=== PATIENT | female | born 1965 | race African-American/Black ===

== ENCOUNTER 2017-11-25 03:17 | Emergency (ER) | payer SELFPAY ==
[2017-11-25] MEDS ORDERED: Ibuprofen 100 MG/5 ML UDCUP ONE (03:57)
--- NOTE | 2017-11-25 09:11 | RAD ---
CHEST PA AND LATERAL: Date: 11/25/17 HISTORY: 52-year-old female with cough for 2 weeks. FINDINGS: There is some left-sided pleural effusion/pleural thickening. Slight right costophrenic angle bluntin g. Minimal patchy bibasilar parenchymal changes without significant confluent process. Heart size is within normal limits. IMPRESSION: Some left-sided pleural effusion/pleural thickening with slight right costophrenic angle blunting. Pa tchy minimal infrahilar parenchymal changes bilaterally, nonspecific, possibly mild pneumonitis or bullard bsegmental atelectasis. POS: [facility]
== END 2017-11-25 04:26 | disposition home or self-care (01) ==
LOC: ERS 03:17
DX: J18.9 Pneumonia, unspecified organism (principal); I10 Essential (primary) hypertension; F20.9 Schizophrenia, unspecified; F17.210 Nicotine dependence, cigarettes, uncomplicated; Z79.899 Other long term (current) drug therapy
CPT/HCPCS: 71046; 93005; 96372; 99406

== ENCOUNTER 2018-12-12 11:04 | Emergency (ER) | payer SELFPAY ==
--- NOTE | 2018-12-12 13:13 | RAD ---
EXAM: CHEST ONE VIEW PORTABLE: History: Cough. Comparison: 11-25-17 FINDINGS: Slight blunting of the costophrenic angles suggesting possible small pleural effusions. Minimal patch y and parenchymal changes in the right and left infrahilar regions raising concern for minimal pneumo nitis. These markings appear little changed, possibly very slightly more prominent than on the prior study. IMPRESSION: Patchy infrahilar minimal linear and parenchymal changes, possibly mild pneumonitis or subsegmental a telectasis or chronic change. Stable to slightly improved costophrenic angle blunting bilaterally. No new confluent pneumonia. Stable heart size. POS: [facility]
== END 2018-12-12 13:27 | disposition home or self-care (01) ==
LOC: ERS 11:04
DX: R05 Cough (principal); I10 Essential (primary) hypertension; F20.9 Schizophrenia, unspecified; F17.210 Nicotine dependence, cigarettes, uncomplicated; Z79.899 Other long term (current) drug therapy; Z71.6 Tobacco abuse counseling
CPT/HCPCS: 71045; 87804; 99406

== ENCOUNTER 2020-01-18 08:17 | Emergency (ER) | payer SELFPAY ==
--- NOTE | 2020-01-18 08:48 | RAD ---
RADIOGRAPH CHEST 2 VIEW: DATE: 01/18/2020 TIME: 9:37 AM HISTORY: 54-year-old female with cough and chest congestion COMPARISON: 11/25/2017 12/12/2018 FINDINGS: Mild blunting of left lateral and left posterior costophrenic angles appears similar to 11/25/2017 and may represent pleural thickening or recurrent tiny left pleural effusion. There is no right pleural effusion. The patchy airspace densities on 12/12/2018 are no longer visualized. Prominent lung markings at bilateral infrahilar lung zones appear unchanged compared to 11/25/2017, and may be chronic. No definite large consolidation, cardiomegaly, or pneumothorax. IMPRESSION: 1. No definite large consolidation. 2. Left pleural reaction. 3. Findings appear similar to 11/25/2017.
== END 2020-01-18 09:05 | disposition home or self-care (01) ==
LOC: ERS 08:17
DX: J20.9 Acute bronchitis, unspecified (principal); I10 Essential (primary) hypertension; F20.9 Schizophrenia, unspecified; F17.210 Nicotine dependence, cigarettes, uncomplicated; Z79.899 Other long term (current) drug therapy
CPT/HCPCS: 71046

== ENCOUNTER 2020-01-21 06:40 | Emergency (ER) | payer SELFPAY | END 2020-01-21 07:25 | disposition home or self-care (01) | LOC: ERS 06:40 | DX: J18.9 Pneumonia, unspecified organism (principal); J44.1 Chronic obstructive pulmonary disease with (acute) exacerbation; J40 Bronchitis, not specified as acute or chronic; I10 Essential (primary) hypertension; F20.9 Schizophrenia, unspecified; F17.210 Nicotine dependence, cigarettes, uncomplicated; Z79.899 Other long term (current) drug therapy | CPT/HCPCS: 99284 ==

== ENCOUNTER 2020-01-29 15:51 | Emergency (ER) | payer SELFPAY ==
--- NOTE | 2020-01-29 16:44 | RAD ---
PA AND LATERAL VIEWS CHEST: 01/29/20 HISTORY: Cough. COMPARISON: 01/18/20. FINDINGS/IMPRESSION: The heart size is enlarged but stable. There is blunting of the left lateral costophrenic angle is ag ain seen and likely represents a small pleural effusion. No lobar consolidation, pneumothoraces, or f rank pulmonary edema are seen. The heart size is stable. POS: [facility]
[2020-01-29] MEDS ORDERED: Ketorolac Tromethamine 30 MG/ML VIAL ONE (17:21)
[2020-01-29 17:30] LABS: #Basophils 0.1 thou/uL (0.0-0.2); #Eosinphils 0.4 thou/uL (0.0-0.7); #Lymphocytes 3.2 thou/uL (1.20-3.40); #Neutrophils 8.7 thou/uL (1.40-6.50); %Basophils 0.8 % (0.0-1.0); %Eosinophils 3.2 % (0.0-10.0); %Lymphocytes 23.7 % (21.0-51.0); %Monocytes 7.6 % (0.0-10.0); %Neutrophils 64.8 % (42.0-75.0); Hemoglobin 13.3 g/dL (12.0-16.0); Mean Corpuscular HGB CONC 34.4 g/dL (32.0-36.0); Mean Corpuscular Hemoglobin 33.7 pg (27.0-31.0); Mean Corpuscular Volume 97.8 fL (78.0-98.0); Mean Platelet Volume 7.4 fL (7.4-10.4); Platelet Count 317 thou/uL (130-400); RBC Distribution Width 12.9 % (11.5-14.5); Red Blood Cell (RBC) Count 3.94 mill/uL (4.20-5.40); White Blood Cell (WBC) Count 13.4 thou/uL (4.8-10.8)
[2020-01-29 17:47] LABS: ALT (SGPT) 9 U/L (8-55); AST (SGOT) 15 U/L (5-34); Albumin 3.7 g/dL (3.5-5.0); Alkaline Phosphatase 114 U/L (40-110); Anion Gap 13 mmol/L (10-20); BUN (Urea Nitrogen) 12 mg/dL (9.8-20.1); Bilirubin, Total 0.3 mg/dL (0.2-1.2); Calc. Creatinine Clearance 0 mL/min (70-130); Calcium 8.7 mg/dL (7.8-10.44); Carbon Dioxide 26 mmol/L (22-29); Chloride 104 mmol/L (98-107); Estimated GFR-MDRD 72; Globulin 4.2 g/dL (2.4-3.5); Glucose 94 mg/dL (70-105); Protein, Total 7.9 g/dL (6.0-8.3); Sodium 139 mmol/L (136-145)
[2020-01-29] MEDS ORDERED: Acetaminophen/Codeine 30-300mg Tablet ONE (17:53)
== END 2020-01-29 18:48 | disposition home or self-care (01) ==
LOC: ERS 15:51
DX: R07.9 Chest pain, unspecified (principal); R05 Cough; I10 Essential (primary) hypertension; F20.9 Schizophrenia, unspecified; F17.210 Nicotine dependence, cigarettes, uncomplicated; Z79.899 Other long term (current) drug therapy
CPT/HCPCS: 71046; 80053; 83605; 84484; 85025; 93005; 96372; J1885

== ENCOUNTER 2020-02-02 15:14 | Emergency (ER) | payer SELFPAY ==
[~2020-02-02 15:14] MED LIST: Iopamidol 370 76% 100 ML VIAL ONE
[2020-02-02] MEDS ORDERED: Ketorolac Tromethamine 30 MG/ML VIAL ONE (15:54)
[2020-02-02] MEDS ORDERED: Morphine 4 MG/ML VIAL ONE (15:54)
[2020-02-02] MEDS ORDERED: Ondansetron PF 4 MG/2 ML Vial ONE (15:54)
[2020-02-02 16:00] LABS: #Basophils 0.1 thou/uL (0.0-0.2); #Eosinphils 0.3 thou/uL (0.0-0.7); #Lymphocytes 2.5 thou/uL (1.20-3.40); #Monocytes 0.8 thou/uL (0.11-0.59); #Neutrophils 8.1 thou/uL (1.40-6.50); %Basophils 0.5 % (0.0-1.0); %Eosinophils 2.2 % (0.0-10.0); %Lymphocytes 21.2 % (21.0-51.0); %Neutrophils 69.1 % (42.0-75.0); Hemoglobin 13.1 g/dL (12.0-16.0); Mean Corpuscular HGB CONC 34.9 g/dL (32.0-36.0); Mean Corpuscular Volume 97.3 fL (78.0-98.0); Platelet Count 311 thou/uL (130-400); RBC Distribution Width 12.8 % (11.5-14.5); Red Blood Cell (RBC) Count 3.86 mill/uL (4.20-5.40); White Blood Cell (WBC) Count 11.7 thou/uL (4.8-10.8)
[2020-02-02 16:26] LABS: ALT (SGPT) 11 U/L (8-55); AST (SGOT) 13 U/L (5-34); Albumin 3.9 g/dL (3.5-5.0); Alkaline Phosphatase 97 U/L (40-110); Anion Gap 11 mmol/L (10-20); BUN (Urea Nitrogen) 10 mg/dL (9.8-20.1); Bilirubin, Total 0.2 mg/dL (0.2-1.2); Calc. Creatinine Clearance 0 mL/min (70-130); Calcium 8.9 mg/dL (7.8-10.44); Carbon Dioxide 25 mmol/L (22-29); Chloride 103 mmol/L (98-107); Estimated GFR-MDRD Greater than 90; Globulin 3.8 g/dL (2.4-3.5); Glucose 134 mg/dL (70-105); Lipase 9 U/L (8-78); Potassium 3.4 mmol/L (3.5-5.1); Protein, Total 7.7 g/dL (6.0-8.3); Sodium 136 mmol/L (136-145)
[2020-02-02 16:37] LABS: Bilirubin Negative (Negative); Blood, Urine Negative (Negative); Clarity Clear (Clear); Glucose, Urine (Dipstick) Normal (Negative); Leukocyte Negative Leu/uL (Negative); Nitrite Negative (Negative); Protein, Urine (Dipstick) Negative (Neg-Trace); Urobilinogen Normal mg/dL (Less than 2)
[2020-02-02 16:41] LABS: Pregnancy Test - Urine (BHCG) Negative (Negative); Pregu Control Background? CLEAR/WHITE (CLR/WHITE); Pregu Control Bar Appear? YES (CONTROL BAR); Specific Gravity 1.013 (1.002-1.036)
[2020-02-02] MEDS ORDERED: HYDROcodone/Acetaminophen 10/325 mg Tablet ONE (19:42)
--- NOTE | 2020-02-02 19:55 | CT ---
CT ARTERIOGRAM CHEST WITH IV CONTRAST AND 3D IMAGING: History: Chest pain. Cough. FINDINGS: There is good contrast opacification of the pulmonary arteries and thoracic aorta with normal branchi ng of the great vessels at the aortic arch. Mildly displaced fractures involve the posterolateral aspect of right ribs 7 and 8. There is linear p arenchymal scarring at each posterior lung base, left greater than right. Additional subtle periphera l patchy areas of ground glass opacity within each lower lobe. No evidence of pneumothorax. No mediastinal adenopathy. IMPRESSION: 1. No CT evidence of pulmonary embolus. 2. Mildly displaced right 7th and 8th rib fractures. No pneumothorax. 3. Parenchymal scarring at the lung bases, left greater than right, possibly related to resolving pne umonitis. Additional subtle patchy peripheral areas of ground glass infiltrate may reflect a resolvin g pneumonitis. POS: [facility]
== END 2020-02-02 19:48 | disposition home or self-care (01) ==
LOC: ERS 15:14
DX: S22.41XA Multiple fractures of ribs, right side, initial encounter for closed fracture (principal); I10 Essential (primary) hypertension; F20.9 Schizophrenia, unspecified; F17.210 Nicotine dependence, cigarettes, uncomplicated; Z79.899 Other long term (current) drug therapy; X50.9XXA Other and unspecified overexertion or strenuous movements or postures, initial encounter
CPT/HCPCS: 71275; 80053; 81003; 81025; 83690; 85025; 96374; 96375; J1885; J2270; J2405; Q9967

== ENCOUNTER 2020-05-09 14:40 | Emergency (ER) | payer MEDICARE, MEDICAID ==
[2020-05-09] MEDS ORDERED: predniSONE 20 MG TAB ONE (15:30)
== END 2020-05-09 15:45 | disposition home or self-care (01) ==
LOC: ERS 14:40
DX: S80.861A Insect bite (nonvenomous), right lower leg, initial encounter (principal); I10 Essential (primary) hypertension; F20.9 Schizophrenia, unspecified; F17.210 Nicotine dependence, cigarettes, uncomplicated; Z79.899 Other long term (current) drug therapy; W57.XXXA Bitten or stung by nonvenomous insect and other nonvenomous arthropods, initial encounter
CPT/HCPCS: 99282; J7512

== ENCOUNTER 2021-01-05 18:12 | Emergency (ER) | payer MEDICARE, MEDICAID ==
[2021-01-05] MEDS ORDERED: Metoclopramide HCl 10 MG/2 ML VIAL ONE (18:48)
[2021-01-05] MEDS ORDERED: Ketorolac Tromethamine 30 MG/ML VIAL ONE (18:48)
[2021-01-05] MEDS ORDERED: diphenhydrAMINE 50 MG/ML VIAL ONE (18:48)
== END 2021-01-05 20:00 | disposition home or self-care (01) ==
LOC: ERS 18:12
DX: R51.9 Headache, unspecified (principal); I10 Essential (primary) hypertension; F17.210 Nicotine dependence, cigarettes, uncomplicated; Z79.899 Other long term (current) drug therapy
CPT/HCPCS: 96365; 96375; J1200; J1885; J2765